=== PATIENT | female | born 1975 ===

== ENCOUNTER 2020-12-03 11:44 | Emergency (ER) | payer SELFPAY ==
[2020-12-03 13:34] VITALS: BP 108/58
[2020-12-03] MEDS ORDERED: ASPIRIN 325 MG TAB PO ONE (13:36)
[2020-12-03] MEDS ORDERED: NITROGLYCERIN 0.4 MG TAB SUBL SL ONE (13:36)
--- NOTE | 2020-12-03 13:36 | Emergency Department Report ---
Blank Doc - Documentation Documentation: 45-year-old female that presents with left sided chest pain, SOB, with radiation to left side of chest. Describes chest pain as tightness and heaviness. 1- This is a initial triage assessment/medical screening only. Full assessment and work-up will be completed once the patient is in proper hospital gown, ED bed and in a private room setting. This initial assessment/diagnostic orders/clinical plan/ treatment(s) is/are subject to change based on pt's health status, clinical progression and re-assessment by fellow clinical providers in the ED. Further treatment and workup at subsequent clinical providers discretion. Patient/guardians urged not to elope from ED as their condition may be serious if not clinically assessed and managed. 2-cardiac workup 3-RN notified to have the patient be brought back [facility]
[2020-12-03 14:16] LABS: Basophils % (Auto) 0.4 % (0.0-1.8); Eosinophils # (Auto) 0.1 K/mm3 (0.0-0.4); Eosinophils % (Auto) 0.9 % (0.0-4.3); Hematocrit 44.1 % (30.3-42.9); Lymphocytes # (Auto) 3.2 K/mm3 (1.2-5.4); Lymphocytes % (Auto) 37.5 % (13.4-35.0); Mean Corpuscular HGB Conc 34 % (30-34); Mean Corpuscular Volume 91 fl (79-97); Monocytes # (Auto) 0.6 K/mm3 (0.0-0.8); Monocytes % (Auto) 7.2 % (0.0-7.3); Platelet Count 343 K/mm3 (140-440); Red Blood Count 4.84 M/mm3 (3.65-5.03); Red Cell Distribution Width 13.9 % (13.2-15.2)
--- NOTE | 2020-12-03 14:21 | XRay Report ---
CHEST 2 VIEWS INDICATION / CLINICAL INFORMATION: Chest Pain. COMPARISON: None available. FINDINGS: SUPPORT DEVICES: None. HEART / MEDIASTINUM: No significant abnormality. LUNGS / PLEURA: No significant pulmonary or pleural abnormality. No pneumothorax. ADDITIONAL FINDINGS: No significant additional findings. IMPRESSION: 1. No acute findings. Signer Name: Ceasar Flores MD Signed: 12/03/2020 2:17 PM Workstation Name: [id number]
[2020-12-03 14:22] LABS: Alanine Aminotransferase 12 units/L (7-56); Albumin 4.3 g/dL (3.9-5); BUN/Creatinine Ratio 15; Blood Urea Nitrogen 12 mg/dL (7-17); Calcium 9.6 mg/dL (8.4-10.2); Hemolysis Index 11
[2020-12-03 14:25] LABS: INR 1.02 (0.87-1.13)
[2020-12-03 14:26] LABS: Partial Thromboplastin Time 27.8 Sec. (24.2-36.6)
--- NOTE | 2020-12-06 09:05 | Electrocardiograph Report ---
[facility] Test Date: 2020-12-03 Test Time: 13:29:51 Pat Name: MIGUEL MARTINEZ Department: Room: Gender: F Work [employer] Family [employer] Consultant: JUAN : 1975 Requested By: SHADI GOSS Order Number: [id number] Reading MD: Dank Dickson Measurements Intervals [place] Rate: 78 P: 67 SC: 119 QRS: 47 QRSD: 81 T: 33 QT: 381 QTc: 435 Interpretive Statements Sinus rhythm No previous ECG available for comparison Electronically Signed On 12-06-2020 9:05:01 EDT by Dank Dickson
== END 2020-12-03 19:45 | disposition left against medical advice (07) ==
LOC: ED 11:44
DX: R07.9 Chest pain, unspecified (principal); Z53.21 Procedure and treatment not carried out due to patient leaving prior to being seen by health care provider
CPT/HCPCS: 36415; 71046; 80053; 84484; 84703; 85025; 85610; 85730; 93005